=== PATIENT | male | born 1960 | race Caucasian/White ===

== ENCOUNTER 2018-10-07 07:14 | Day surgery (SDC) | payer MEDICARE, OTHER ==
[2018-10-07] MEDS ORDERED: FENTANYL 100MCG/2ML SOL ONE (07:57)
[2018-10-07] MEDS ORDERED: PROPOFOL 500 MG/50 ML EMU IV ONE (07:57)
[2018-10-07 10:35] VITALS: RESP 20; TEMP 97.3
[2018-10-07 10:45] VITALS: BP 141/80; PULSE 67; O2SAT 98
== END 2018-10-07 11:09 | disposition home or self-care (01) | DRG 392 ==
LOC: SURG 07:14
PROVIDERS: ATTEND Internal Medicine Gastroenterology
DX: R10.10 Upper abdominal pain, unspecified (principal); Q39.9 Congenital malformation of esophagus, unspecified; E11.9 Type 2 diabetes mellitus without complications; R13.10 Dysphagia, unspecified; R19.7 Diarrhea, unspecified; L53.8 Other specified erythematous conditions; K52.9 Noninfective gastroenteritis and colitis, unspecified
CPT/HCPCS: J3010; J2704

== ENCOUNTER 2018-10-08 08:47 | Day surgery (SDC) | payer OTHER ==
[~2018-10-08 08:47] MED LIST: LIDOCAINE HCL 1% MPF 30 SOL ONE; PROPOFOL 500 MG/50 ML EMU IV ONE
[2018-10-08 10:52] VITALS: BP 132/75; PULSE 65; RESP 20; TEMP 97.4; O2SAT 100
== END 2018-10-08 11:30 | disposition home or self-care (01) | DRG 951 ==
LOC: SURG 08:47
PROVIDERS: ATTEND Surgery
DX: Z12.11 Encounter for screening for malignant neoplasm of colon (principal); K52.9 Noninfective gastroenteritis and colitis, unspecified; K63.5 Polyp of colon; D12.7 Benign neoplasm of rectosigmoid junction; D12.3 Benign neoplasm of transverse colon; E11.9 Type 2 diabetes mellitus without complications
CPT/HCPCS: J2001; J2704